=== PATIENT | male | born 1985 | race Caucasian/White ===

== ENCOUNTER → 2020-04-10 10:46 | Outpatient (CLI) | payer OTHER, SELFPAY ==
--- NOTE | 2020-04-10 10:52 | DI.RAD.S_ITS ---
PROCEDURE: XR CHEST 2V INDICATIONS: asthma TECHNIQUE: 2 views of the chest were acquired. COMPARISON: [facility], , CHEST 1 VIEW, 10/18/2014, 11:38. FINDINGS: Surgical changes and devices: None. Lungs and pleura: Lungs are clear. No pleural effusions or pneumothorax. Mediastinum: Mediastinal contours are normal. Heart size is normal. Bones and chest wall: No suspicious bony abnormalities. Soft tissues appear unremarkable. IMPRESSION: Normal for age, source of current asthma symptoms is not seen. Dictated by: Domingo Cooley M.D. on 04/10/2020 at 11:24 Approved by: Domingo Cooley M.D. on 04/10/2020 at 11:24
[2020-04-10 13:27] LABS: Urine N gonorrhoeae NOT DETECTED
[2020-04-10 13:31] LABS: Urine Chlamydia NOT DETECTED
[2020-04-10 14:08] LABS: HIV 1 & 2 Ab/Ag 4th Gen Combo NEGATIVE (NEGATIVE)
[2020-04-11 03:53] LABS: HBsAg Screen Negative (Negative); Hepatitis A Antibody IgM Negative (Negative); Hepatitis B Core Antibody IgM Negative (Negative); Hepatitis C Antibody <0.1 s/co ratio (0.0-0.9)
[2020-04-11 04:36] LABS: RPR Screen Non Reactive (Non Reactive)
[2020-04-14 08:11] LABS: HSV 1 DNA Negative (Negative); HSV 2 DNA Negative (Negative)
== END ==
PROVIDERS: PCP Registered Nurse; Referring Provider Registered Nurse; Visit Provider Registered Nurse
DX: Z11.3 Encounter for screening for infections with a predominantly sexual mode of transmission (principal); J45.909 Unspecified asthma, uncomplicated
CPT/HCPCS: 36415; 71046; 80074; 86592; 87389; 87491; 87529; 87591

== ENCOUNTER → 2023-05-08 08:45 | Outpatient (CLI) | payer OTHER, SELFPAY ==
--- NOTE | 2023-05-08 | DI.RAD.S_ITS ---
PROCEDURE: XR FOOT RT 2V INDICATIONS: shattered bone of right foot, fracture of 2nd toe TECHNIQUE: 3 views of the foot were acquired. COMPARISON: [facility], CR, XR FOOT 3+ VIEWS RIGHT, 04/12/2019, 8:58. FINDINGS: Bones: Postsurgical changes of the 2nd middle and distal phalanges. No acute interval fracture identified. No dislocation/subluxation. Soft tissues: No suspicious calcifications. IMPRESSION: Postsurgical changes of the 2nd toe again seen. No acute radiographic abnormality. If there is high concern for further derangement, consider MRI evaluation. Dictated by: Cassius Robles M.D. on 05/08/2023 at 11:39 Approved by: Cassius Robles M.D. on 05/08/2023 at 11:41
== END ==
PROVIDERS: Referring Provider Chiropractor; Visit Provider Chiropractor
DX: S92.901A Unspecified fracture of right foot, initial encounter for closed fracture (principal); S92.911A Unspecified fracture of right toe(s), initial encounter for closed fracture; X58.XXXA Exposure to other specified factors, initial encounter
CPT/HCPCS: 73620